=== PATIENT | female | born 1955 | race Caucasian/White ===

== ENCOUNTER → 2017-02-15 | Outpatient (REF) | LOC: ZLAB.WCH 11:13 | DX: Z01.89 Encounter for other specified special examinations (principal) ==

== ENCOUNTER → 2018-02-05 | Outpatient (CLI) | payer BC | LOC: COL.PUL 01-31 08:00 | DX: R06.02 Shortness of breath (principal); Z87.891 Personal history of nicotine dependence | CPT/HCPCS: J7674 ==

== ENCOUNTER → 2018-03-08 | Outpatient (REF) | LOC: ZLAB.WCH 15:20 | DX: Z01.89 Encounter for other specified special examinations (principal) ==

== ENCOUNTER 2019-05-30 14:56 | Outpatient (RCR) | payer BC | END 2019-06-02 15:31 | disposition home or self-care (01) | LOC: MKS.ESL.PT 14:56 | DX: Z00.00 Encounter for general adult medical examination without abnormal findings (principal); Z13.6 Encounter for screening for cardiovascular disorders; G47.33 Obstructive sleep apnea (adult) (pediatric); K21.9 Gastro-esophageal reflux disease without esophagitis; M25.473 Effusion, unspecified ankle; E87.6 Hypokalemia; M85.80 Other specified disorders of bone density and structure, unspecified site; I89.0 Lymphedema, not elsewhere classified ==